=== PATIENT | male | born 2005 | race Caucasian/White ===

== ENCOUNTER 2025-06-02 18:45 | Emergency (ER) | payer OTHER, SELFPAY ==
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
--- NOTE | 2025-06-02 18:54 | ED.SKABFB ---
HPI - Skin/Abscess/Foreign Bdy General Chief complaint: Skin/Abscess/Foreign Body Stated complaint: poison roslyn Source: patient and RN notes reviewed Mode of arrival: ambulatory Limitations: no limitations History of Present Illness HPI narrative: Patient is a 19-year-old male who presents to the [facility] with complaints of possible poison roslyn. Patient states that he noted a rash to his left upper chest that then spread to his abdomen, bilateral arms, hands, and to his face. He reports that itching to the rash. States that he has been using calamine lotion today. 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 Related Data Allergies Allergy/AdvReac Type Severity Reaction Status Date / Time No Known Allergies Allergy Verified 06/02/25 19:01 Review of Systems Review of Systems: CONSTITUTIONAL: Denies fever, chills, or sweats. EYES: Denies visual changes, redness, or discharge. ENT: Denies otalgia and sore throat CARDIOVASCULAR: Denies chest pain, palpitations, or edema. RESPIRATORY: Denies cough or dyspnea. GASTROINTESTINAL: Denies abdominal pain, nausea, vomiting, or diarrhea. GENITOURINARY: Denies dysuria or hematuria. SKIN: Reports rash and itching. MUSCULOSKELETAL: Denies back pain, joint pain, or myalgia. NEUROLOGIC: Denies headache, numbness, or weakness. Pertinent positives per HPI. PMFSH Comments At the time of my signature, I reviewed and agree with the nursing past medical, surgical, social, and family history. There is no relevant family history pertinent to the patient complaint. Exam Narrative: GENERAL: This is a well-nourished, well-developed patient, in no apparent distress. HEAD: normocephalic, atraumatic. EYES: Sclera clear/white. Vision is grossly intact. EARS: External ears normal. Hearing grossly intact. NOSE: External nose normal with no obvious nasal discharge, nares without redness, no rhinorrhea. THROAT: Mucous membranes moist, posterior pharynx clear. NECK: Neck supple, non-tender without lymphadenopathy, masses or thyromegaly. CARDIOVASCULAR: Regular rate and rhythm without murmurs, gallops, or rubs. RESPIRATORY: Clear to auscultation. Breath sounds equal bilaterally. No wheezes, rales, or rhonchi. GASTROINTESTINAL: Abdomen soft, non-tender, nondistended. Bowel sounds are active. No hepato-splenomegaly, or palpable masses. No guarding. SKIN: Vesicular rash with blisters to chest, abdomen, bilateral arms, bilateral hands, and face. Rash is consistent with poison roslyn. NEURO: awake, alert, and oriented to person, place and time. There were no obvious focal neurologic abnormalities. Course Course Level of Care: Express Care Visit Vital Signs Vital signs: Vital Signs Temperature 98.4 F 06/02/25 19:01 Pulse Rate 67 06/02/25 19:01 Respiratory Rate 18 06/02/25 19:01 Blood Pressure 145/66 H 06/02/25 19:01 Pulse Oximetry 99 06/02/25 19:01 Oxygen Delivery Room Air 06/02/25 19:01 Temperature 98.4 F 06/02/25 19:01 Pulse Rate 67 06/02/25 19:01 Respiratory Rate 18 06/02/25 19:01 Blood Pressure 145/66 H 06/02/25 19:01 Pulse Oximetry 99 06/02/25 19:01 Oxygen Delivery Room Air 06/02/25 19:01 Reviewed MDM - Skin/Abscess/Foreign Bdy MDM Narrative Medical decision making narrative: Prevention is always better than treatment. Learn to identify poison roslyn, oak, and sumac and avoid it. Wear long sleeves, long pants, shoes, and socks. If you touched the plant, try to keep your hands away from your eyes, mouth, and face. Wash the skin thoroughly with soap and cool water as soon as possible. Scrub under the fingernails with a brush to prevent spreading of the resin to other parts of the body by touching or scratching. Remember to wash any clothing with soap and hot water as the resin can persist for many months and cause further dermatitis. Use calamine lotion on the affect area. IF symptoms get worse to follow up with your primary care provider or seek ER visit if you developing difficulty breathing, weakness, dizziness. Differential Diagnosis Differential diagnosis: Likely urticaria, cellulitis, contact dermatitis and other (poison roslyn) Critical Care Time Critical Care Time Critical Care Time: No Discharge Plan Discharge Clinical Impression: Contact dermatitis due to poison roslyn Patient Disposition: Home Condition: Stable Instructions: Poison Roslyn (ED) Additional Instructions: Prevention is always better than treatment. Learn to identify poison roslyn, oak, and sumac and avoid it. Wear long sleeves, long pants, shoes, and socks. If you touched the plant, try to keep your hands away from your eyes, mouth, and face. Wash the skin thoroughly with soap and cool water as soon as possible. Scrub under the fingernails with a brush to prevent spreading of the resin to other parts of the body by touching or scratching. Remember to wash any clothing with soap and hot water as the resin can persist for many months and cause further dermatitis. Use calamine lotion on the affect area. IF symptoms get worse to follow up with your primary care provider or seek ER visit if you developing difficulty breathing, weakness, dizziness. Patient Language: Montenegrin Prescriptions: New prednisone 10 mg tablet 10 mg PO DIRECTED Qty: 35 0RF Rx Instructions: Take 4 tabs on days 1 through 5, then take 2 tabs on day 6 through 10, then take 1 tab on days 11 through 15 Calamine Medicated 1-8 % lotion 1 applic topical TID PRN (Reason: itching) Qty: 177 0RF Follow-up/Referrals: UNKNOWN,DOCTOR [Primary Care Provider] - Time of Disposition: 19:09
[2025-06-02 19:01] VITALS: BP 145/66; PULSE 67; RESP 18; TEMP 36.9; O2SAT 99
== END 2025-06-02 19:11 | disposition home or self-care (01) ==
PROVIDERS: Emergency Provider Nurse Practitioner
DX: L23.7 Allergic contact dermatitis due to plants, except food (principal)
CPT/HCPCS: 99203; G0463